=== PATIENT | female | born 1970 | race African-American/Black ===

== ENCOUNTER 2017-07-17 23:32 | Emergency (ER) | payer BC ==
[~2017-07-17] VITALS: Ht 157.5 cm; Wt 58.1 kg
[2017-07-17 23:50] VITALS: BP 134/82
--- NOTE | 2017-07-17 23:52 | Emergency Room Report ---
History of Present Illness General Chief Complaint: Dyspnea/Respdistress Source: Patient Present Illness HPI Is a 46-year-old female with a history of asthma. She presents with chief complaint of wheezing and coughing his been ongoing for a week. Worse in the last few days. No fever or chills. No nausea no vomiting. Coughing is nonproductive nature. She saw her primary care DrOlivier 2 weeks ago and prescribe albuterol and Breo. She ran out of the medication few days ago. Not helping. Denies any fever or chills. Denies any nausea vomiting. Worse with exertion. Worse with lying flat. Allergies: Coded Allergies: FISH CONTAINING PRODUCTS (Verified Allergy, Unknown, 07/17/17) NUT - UNSPECIFIED (Verified Allergy, Unknown, 07/17/17) Patient History Past Medical History: see triage record, old chart reviewed, asthma Past Surgical History: none Pertinent Family History: none Social History: Denies: smoking Last Menstrual Period: june 28 Now: No Immunizations: other Reviewed Nursing Documentation: PMH: Agreed; PSxH: Agreed Nursing Documentation-PMH Hx Asthma: Yes Review of Systems Eye: Denies: eye pain, blurred vision ENT: Denies: ear pain, nose congestion, throat swelling Respiratory: Reports: shortness of breath, wheezing; Denies: cough Cardiovascular: Denies: chest pain, palpitations Gastrointestinal: Denies: abdominal pain, diarrhea, nausea, vomiting Musculoskeletal: Denies: back pain, joint pain Skin: Denies: rash Neurological: Denies: headache, numbness Endocrine: Denies: increased thirst, increased urine Hematologic/Lymphatic: Denies: easy bruising All Other Systems: negative except mentioned in HPI Physical Exam Vital Signs Date Time Temp Pulse Resp B/P (MAP) Pulse Ox O2 Delivery O2 Flow Rate FiO2 07/17/17 23:35 97.9 76 22 134/82 97 97.9 vitals normal Sp02 EP Interpretation: reviewed, normal General Appearance: well appearing, no apparent distress, alert Head: normocephalic, atraumatic Eyes: bilateral eye PERRL, bilateral eye EOMI ENT: hearing grossly normal, normal pharynx Neck: full range of motion, supple, no meningismus Respiratory: chest non-tender, respiratory distress, accessory muscle use, wheezing Cardiovascular #1: regular rate, rhythm, no murmur Gastrointestinal: normal bowel sounds, non tender, no mass, no organomegaly, no bruit, non-distended Musculoskeletal: back normal, gait/station normal, normal range of motion Psychiatric: mood/affect normal Skin: warm/dry Medical Decision Making Diagnostic Impression: Primary Impression: Asthma exacerbation Qualified Codes: J45.901 - Unspecified asthma with (acute) exacerbation ER Course Patient present with asthma exacerbation. She was using her Breo Ellipta as a rescue inhaler rather then a maintenance inhaler. Better after breathing treatment. X-rays unremarkable. No evidence of ACS, PE, dissection to name a few. We'll discharge home. Chest X-Ray Diagnostic Results Chest X-Ray Diagnostic Results : Chest X-Ray Ordered: Yes # of Views/Limited/Complete: 1 View Indication: Shortness of Breath EP Interpretation: Yes Interpretation: no consolidation, no effusion, no pneumothorax, no acute cardiopulmonary disease Impression: No acute disease Electronically Signed by: Carrillo Staples MD Last Vital Signs Date Time Temp Pulse Resp B/P (MAP) Pulse Ox O2 Delivery O2 Flow Rate FiO2 07/17/17 23:35 97.9 76 22 134/82 97 97.9 Status: improved Disposition: HOME, SELF-CARE Condition: Stable Scripts Fluticasone/Vilanterol (Breo Ellipta 100-25 Mcg INH) 1 Each Blst.w.dev 1 EACH IH BID, #1 EACH Prov: CARRILLO STAPLES M.D. 07/18/17 Prednisone* (PREDNISONE*) 20 Mg Tablet 60 MG ORAL DAILY, #12 TAB Prov: CARRILLO STAPLES M.D. 07/18/17 Albuterol Sulfate* (ALBUTEROL SULFATE MDI*) 8.5 Gm Hfa.aer.ad 2 PUFF INH Q4H PRN for cough/wheezing, #1 EA 0 Refills Prov: CARRILLO STAPLES M.D. 07/18/17 Referrals: [facility],REFERRING (PCP) Additional Instructions: Follow-up with your DrOlivier in 2-3 days. Return if symptom worsen. CARRILLO STAPLES M.D. Jul 17, 2017 23:52
[2017-07-18] MEDS ORDERED: Ipratropium 0.02% Inh Soln 2.5ml UD HHN ONE
[2017-07-18] MEDS ORDERED: Albuterol ud Inhalation HHN ONE
[2017-07-18] MEDS ORDERED: ALBUTEROL SULF8.5 GM INH (00:24)
[2017-07-18] MEDS ORDERED: BREO ELLIPTA 11 EACH IH (00:24)
[2017-07-18] MEDS ORDERED: PREDNISONE20 MG ORAL (00:24)
[2017-07-18 00:48] VITALS: BP 134/82
--- NOTE | 2017-07-18 10:42 | Diagnostic Imaging Report ---
Indication: Shortness of breath Technique: One view of the chest Comparison: none Findings: Lungs and pleural spaces are clear. Heart size is normal Impression: No acute process
== END 2017-07-18 00:49 | disposition home or self-care (01) ==
LOC: EMR 23:45
DX: J45.901 Unspecified asthma with (acute) exacerbation (principal); Z91.018 Allergy to other foods
CPT/HCPCS: 71045; 80307; 94640; 94664; 99284; J7512